=== PATIENT | male | born 1940 | race Caucasian/White ===

== ENCOUNTER 2017-02-14 09:24 | Outpatient (CLI) | payer MEDICARE, OTHER ==
[2017-02-14 18:24] LABS: CHOL/HDL RATIO 2.9 (<5.0); CHOLESTEROL 167 mg/dL; GLUCOSE,FASTING 109 mg/dL (70-100); HDL CHOLESTEROL 57 mg/dL; LDL/HDL RATIO 1.7 (<3.6); TRIGLYCERIDES 53 mg/dL; VLDL CHOLESTEROL 11 mg/dL
== END 2017-02-14 09:25 | disposition home or self-care (01) ==
LOC: LAB.F 09:24
PROVIDERS: ATTEND Internal Medicine
DX: E78.5 Hyperlipidemia, unspecified (principal); I25.9 Chronic ischemic heart disease, unspecified; R73.01 Impaired fasting glucose; C61 Malignant neoplasm of prostate; L29.9 Pruritus, unspecified; B35.6 Tinea cruris
CPT/HCPCS: 36415; 80061; 82947

== ENCOUNTER 2017-05-22 14:50 | Outpatient (CLI) | payer MEDICARE, OTHER ==
[2017-05-23 13:18] LABS: HEPATITIS C ANTIBODY NON-REACTIVE (NON-REACTIVE)
[2017-05-23 13:41] LABS: HEPATITIS B SURFACE ANTIGEN NON-REACTIVE (NON-REACTIVE)
== END 2017-05-22 14:51 | disposition home or self-care (01) ==
LOC: LAB.F 14:50
PROVIDERS: ATTEND Internal Medicine
DX: Z00.00 Encounter for general adult medical examination without abnormal findings (principal); I25.9 Chronic ischemic heart disease, unspecified; E78.5 Hyperlipidemia, unspecified; R73.01 Impaired fasting glucose; C61 Malignant neoplasm of prostate; L28.2 Other prurigo; B35.6 Tinea cruris; Z20.828 Contact with and (suspected) exposure to other viral communicable diseases
CPT/HCPCS: 36415; 86803; 87340; 87389

== ENCOUNTER 2017-09-28 08:00 | Outpatient (CLI) | payer MEDICARE, OTHER | END 2017-09-28 08:01 | LOC: LAB.F 08:00 | PROVIDERS: ATTEND Urology | DX: C61 Malignant neoplasm of prostate (principal) | CPT/HCPCS: 36415; 84153 ==

== ENCOUNTER 2018-02-28 09:00 | Outpatient (CLI) | payer MEDICARE, OTHER ==
[2018-02-28 18:28] LABS: CHOL/HDL RATIO 2.3 (<5.0); CHOLESTEROL 143 mg/dL; GLUCOSE,FASTING 109 mg/dL (70-100); HDL CHOLESTEROL 63 mg/dL; LDL CHOLESTEROL,CALCULATED 67 mg/dL; LDL/HDL RATIO 1.1 (<3.6); VLDL CHOLESTEROL 13 mg/dL
[2018-03-01 14:11] LABS: HIV AG/AB 4TH GEN NON-REACTIVE (NON-REACTIVE)
== END 2018-02-28 09:01 | disposition home or self-care (01) ==
LOC: LAB.F 09:00
PROVIDERS: ATTEND Internal Medicine
DX: Z00.00 Encounter for general adult medical examination without abnormal findings (principal); E78.5 Hyperlipidemia, unspecified; Z11.4 Encounter for screening for human immunodeficiency virus [HIV]; C61 Malignant neoplasm of prostate; J30.9 Allergic rhinitis, unspecified; M50.30 Other cervical disc degeneration, unspecified cervical region; L25.9 Unspecified contact dermatitis, unspecified cause; R73.01 Impaired fasting glucose; N52.9 Male erectile dysfunction, unspecified; M25.562 Pain in left knee; Z98.61 Coronary angioplasty status; L28.2 Other prurigo; I73.00 Raynaud's syndrome without gangrene; Z12.11 Encounter for screening for malignant neoplasm of colon; B35.6 Tinea cruris
CPT/HCPCS: 36415; 80061; 82947; 84153; G0475; 83721; 87389

== ENCOUNTER 2018-03-05 15:15 | Outpatient (CLI) | payer MEDICARE, OTHER ==
--- NOTE | 2018-03-06 01:57 | XRAY Report ---
Reason: PAIN IN RIGHT HIP JOINT Procedure Date: 03/05/2018 Accession Number: [id number] / [id number] Procedure: XR - Hip w/Pelvis 2-3V RT CPT Code: FULL RESULT: EXAM: RIGHT HIP AND PELVIS RADIOGRAPHY EXAM DATE: 03/05/2018 03:30 PM. HISTORY: PAIN IN RIGHT HIP JOINT. COMPARISONS: None. TECHNIQUE: 1 view of the pelvis and 1 view of the hip. FINDINGS: Bones: Normal. No fracture or bone lesion. Joints: Mild right hip joint space narrowing. Lower lumbar spine disk related degenerative changes also seen. Soft Tissues: Prostate gland brachytherapy seed implants noted. IMPRESSION: 1. No evidence of right hip fracture or destructive bony lesion. 2. Mild degenerative changes. RADIA
== END 2018-03-05 15:16 | disposition home or self-care (01) ==
LOC: DI 15:15
PROVIDERS: ATTEND Internal Medicine
DX: M16.11 Unilateral primary osteoarthritis, right hip (principal); M51.36 Other intervertebral disc degeneration, lumbar region

== ENCOUNTER 2019-04-23 10:26 | Outpatient (CLI) | payer MEDICARE, OTHER ==
[2019-04-23 20:01] LABS: CHOL/HDL RATIO 2.2 (<5.0); CHOLESTEROL 144 mg/dL; GLUCOSE,FASTING 101 mg/dL (70-100); HDL CHOLESTEROL 65 mg/dL; LDL CHOLESTEROL,CALCULATED 69 mg/dL; LDL/HDL RATIO 1.1 (<3.6); VLDL CHOLESTEROL 10 mg/dL
== END 2019-04-23 10:27 | disposition home or self-care (01) ==
LOC: LAB.S 10:26
PROVIDERS: ATTEND Internal Medicine
DX: Z00.00 Encounter for general adult medical examination without abnormal findings (principal); J30.9 Allergic rhinitis, unspecified; I25.9 Chronic ischemic heart disease, unspecified; H91.90 Unspecified hearing loss, unspecified ear; M50.30 Other cervical disc degeneration, unspecified cervical region; N52.9 Male erectile dysfunction, unspecified; E78.5 Hyperlipidemia, unspecified; R73.01 Impaired fasting glucose; C61 Malignant neoplasm of prostate; M25.562 Pain in left knee; M25.551 Pain in right hip; M25.511 Pain in right shoulder; Z98.61 Coronary angioplasty status; I73.00 Raynaud's syndrome without gangrene; Z12.11 Encounter for screening for malignant neoplasm of colon; Z12.5 Encounter for screening for malignant neoplasm of prostate
CPT/HCPCS: 36415; 80061; 82947; 83721; 84153

== ENCOUNTER 2020-04-04 10:09 | Outpatient (CLI) | payer MEDICARE, OTHER ==
[2020-04-04 15:25] LABS: CHOL/HDL RATIO 2.6 (<5.0); CHOLESTEROL 167 mg/dL; GLUCOSE 114 mg/dL (70-100); HDL CHOLESTEROL 65 mg/dL; LDL CHOLESTEROL,CALCULATED 82 mg/dL; LDL/HDL RATIO 1.3 (<3.6); VLDL CHOLESTEROL 20 mg/dL
== END 2020-04-04 10:10 | disposition home or self-care (01) ==
LOC: LAB.S 10:09
PROVIDERS: ATTEND Internal Medicine
DX: Z00.00 Encounter for general adult medical examination without abnormal findings (principal); E78.5 Hyperlipidemia, unspecified; N52.9 Male erectile dysfunction, unspecified; Z98.61 Coronary angioplasty status; M50.30 Other cervical disc degeneration, unspecified cervical region; R73.01 Impaired fasting glucose; C61 Malignant neoplasm of prostate; M25.562 Pain in left knee; M25.511 Pain in right shoulder; M25.551 Pain in right hip; I73.00 Raynaud's syndrome without gangrene; Z12.11 Encounter for screening for malignant neoplasm of colon
CPT/HCPCS: 36415; 80061; 82947; 83721

== ENCOUNTER 2020-07-20 09:32 | Outpatient (CLI) | payer MEDICARE, OTHER ==
--- NOTE | 2020-07-20 11:54 | MRI Report ---
PROCEDURE: Lumbar Spine W/O INDICATIONS: LUMBAR RADICULOPATHY TECHNIQUE: Noncontrast sagittal T1 spin echo and T2 fast echo, sagittal STIR, axial T1 and T2 fast spin echo thr ough the lumbar spine. In cases with scoliosis, additional coronal T2 fast spin echo may be performe d. COMPARISON: Lumbar spine plain films dated 08/26/2014. FINDINGS: Image quality: Excellent. Alignment and Curvature: Trace degenerative retrolisthesis of L4 on L5. Bone Marrow: Marrow is of normal overall signal. No acute vertebral body compression fractures. Spinal Cord: Conus medullaris terminates at the L1 level. Visualized cord demonstrates normal signa l and size. Paraspinous Soft Tissues: No paravertebral masses. T12-L1: No canal stenosis or foraminal stenosis. L1-L2: Mild disc bulge. Mild facet hypertrophy. No canal stenosis or foraminal stenosis. L2-L3: Disc bulge. Facet and ligament hypertrophy. Moderate canal stenosis. Mild bilateral foramin al stenosis. L3-L4: Disc bulge, short pedicles, facet and ligamentous hypertrophy with severe canal stenosis. Mi ld to moderate right foraminal narrowing. Moderate to severe left foraminal narrowing with flattening deformity on the exiting left L3 nerve root. L4-L5: Short pedicles, trace retrolisthesis of L4 on L5, disc bulge, facet and ligament hypertrophy . Marked canal stenosis. Moderate bilateral foraminal narrowing with flattening deformity on the exit ing bilateral L4 nerve roots. L5-S1: Disc bulge. Short pedicles. Facet and ligament hypertrophy. Moderate to severe canal stenosi s. Severe right foraminal narrowing with impingement on the exiting right L5 nerve root. Moderate lef t foraminal narrowing with flattening deformity on the exiting left L5 nerve root. IMPRESSION: 1. Extensive multilevel degenerative change. 2. Canal stenosis is moderate at L2-L3, severe at L3-L4, marked at L4-L5, and moderate to severe at L 5-S1. 3. Multilevel foraminal narrowing as described above. Reviewed by: Fernando Mendez MD on 07/20/2020 10:53 AM [place] Approved by: Fernando Mendez MD on 07/20/2020 10:53 AM [facility] Station ID: [id number]
--- NOTE | 2020-07-20 11:57 | XRAY Report ---
PROCEDURE: Knee 3 View RT INDICATIONS: LUMBAR RADICULOPATHY TECHNIQUE: 3 views of the right knee(s) were acquired. COMPARISON: None. FINDINGS: No fracture. Scattered subchondral sclerosis and spurring. Mild narrowing of the medial joint space. Large joint effusion. Scattered vascular calcifications IMPRESSION: Mild degenerative joint disease Large joint effusion If the patient's pain or other symptoms persist, consider further evaluation with MRI. Reviewed by: Perry Hilton MD on 07/20/2020 11:55 AM PST Approved by: Perry Hilton MD on 07/20/2020 11:55 AM PST Station ID: [id number]
== END 2020-07-20 09:33 | disposition home or self-care (01) ==
LOC: DI 09:32
PROVIDERS: ATTEND Internal Medicine
DX: M47.816 Spondylosis without myelopathy or radiculopathy, lumbar region (principal); M48.061 Spinal stenosis, lumbar region without neurogenic claudication; M51.86 Other intervertebral disc disorders, lumbar region; M47.817 Spondylosis without myelopathy or radiculopathy, lumbosacral region; M51.87 Other intervertebral disc disorders, lumbosacral region; M48.07 Spinal stenosis, lumbosacral region; M16.11 Unilateral primary osteoarthritis, right hip; M25.461 Effusion, right knee

== ENCOUNTER 2020-08-18 08:12 | Outpatient (CLI) | payer MEDICARE, OTHER | END 2020-08-18 08:13 | disposition home or self-care (01) | LOC: LAB.S 08:12 | PROVIDERS: ATTEND Electrodiagnostic Medicine | DX: G62.9 Polyneuropathy, unspecified (principal) ==

== ENCOUNTER 2020-08-18 09:55 | Outpatient (CLI) | payer MEDICARE, OTHER ==
[2020-08-18 10:38] LABS: GTT GLUCOSE,FASTING 110 mg/dL (70-100)
[2020-08-18 10:58] LABS: THYROID STIMULATING HORMONE 1.01 uIU/mL (0.34-5.60)
[2020-08-18 13:45] LABS: ESTIMATED AVERAGE GLUCOSE 128 mg/dL (70-100); HEMOGLOBIN A1c% 6.1 % (4.27-6.07)
[2020-08-20 16:10] LABS: ALPHA 1 GLOBULIN 0.3 g/dL (0.2-0.3); ALPHA 2 GLOBULIN 0.8 g/dL (0.5-0.9); BETA 1 GLOBULIN 0.5 g/dL (0.4-0.6); BETA 2 GLOBULIN 0.4 g/dL (0.2-0.5); GAMMA GLOBULIN 0.7 g/dL (0.8-1.7)
== END 2020-08-18 09:56 | disposition home or self-care (01) ==
LOC: LAB 09:55
PROVIDERS: ATTEND Electrodiagnostic Medicine
DX: G62.9 Polyneuropathy, unspecified (principal)
CPT/HCPCS: 36415; 81599; 82570; 82607; 82951; 83036; 84155; 84156; 84165; 84166; 84443; 86334

== ENCOUNTER 2021-01-12 19:41 | Outpatient (CLI) | payer MEDICARE, OTHER | END 2021-01-12 19:42 | disposition short-term general hospital (02) | LOC: EMS 19:41 | DX: Z04.3 Encounter for examination and observation following other accident (principal); M25.551 Pain in right hip | CPT/HCPCS: A0425; A0427 ==

== ENCOUNTER 2021-02-19 15:03 | Outpatient (CLI) | payer MEDICARE, OTHER | END 2021-02-19 15:04 | disposition home or self-care (01) | LOC: LAB.S 15:03 | PROVIDERS: ATTEND Internal Medicine | DX: I82.409 Acute embolism and thrombosis of unspecified deep veins of unspecified lower extremity (principal) | CPT/HCPCS: 36416; 85610 ==

== ENCOUNTER 2021-03-05 08:48 | Outpatient (CLI) | payer MEDICARE, OTHER | END 2021-03-05 08:49 | disposition home or self-care (01) | LOC: LAB.S 08:48 | PROVIDERS: ATTEND Internal Medicine | DX: I82.409 Acute embolism and thrombosis of unspecified deep veins of unspecified lower extremity (principal) | CPT/HCPCS: 36416; 85610 ==

== ENCOUNTER 2021-04-12 15:27 | Outpatient (CLI) | payer MEDICARE, OTHER ==
[2021-04-12 20:00] LABS: BASOPHILS % (AUTO) 0.5 %; EOSINOPHILS # (AUTO) 0.2 10^3/uL (0.0-0.7); EOSINOPHILS % (AUTO) 3.5 %; HCT - HEMATOCRIT 39.2 % (42.0-52.0); HGB - HEMOGLOBIN 12.1 g/dL (14.0-18.0); LYMPHOCYTES # (AUTO) 2.1 10^3/uL (1.5-3.5); LYMPHOCYTES % (AUTO) 32.2 %; MEAN CORPUSCULAR HEMOGLOBIN 28.1 pg (27.0-31.0); MEAN CORPUSCULAR HGB CONC 30.9 g/dL (32.0-36.0); MEAN PLATELET VOLUME 9.7 fL (7.4-11.4); MONOCYTES # (AUTO) 0.6 10^3/uL (0.0-1.0); MONOCYTES % (AUTO) 8.9 %; NEUTROPHILS # (AUTO) 3.6 10^3/uL (1.5-6.6); NEUTROPHILS % (AUTO) 54.6 %; PLT - PLATELET COUNT 258 10^3/uL (130-450); RED BLOOD COUNT 4.31 10^6/uL (4.70-6.10); RED CELL DISTRIBUTION WIDTH 15.1 % (12.0-15.0); WHITE BLOOD COUNT 6.6 x10^3/uL (4.8-10.8)
[2021-04-12 20:24] LABS: ALBUMIN 3.8 g/dL (3.2-5.5); ALBUMIN/GLOBULIN RATIO 1.3 (1.0-2.2); ALKALINE PHOSPHATASE 122 IU/L (42-121); ALT ALANINE AMINOTRANSFERASE 19 IU/L (10-60); AST ASPARTATE AMINOTRANSFERASE 21 IU/L (10-42); BILIRUBIN,TOTAL 0.5 mg/dL (0.2-1.0); BUN - BLOOD UREA NITROGEN 22 mg/dL (6-20); CALCIUM 8.9 mg/dL (8.5-10.3); CARBON DIOXIDE - CO2 25 mmol/L (21-32); CHLORIDE 103 mmol/L (101-111); CHOL/HDL RATIO 2.6 (<5.0); CHOLESTEROL 153 mg/dL; CREATININE 0.7 mg/dL (0.6-1.2); GFR - MDRD 109 (>89); GLUCOSE 132 mg/dL (70-100); HDL CHOLESTEROL 60 mg/dL; LDL CHOLESTEROL,CALCULATED 57 mg/dL; POTASSIUM 4.2 mmol/L (3.5-5.0); SODIUM 137 mmol/L (135-145); TOTAL PROTEIN 6.7 g/dL (6.7-8.2); TRIGLYCERIDES 181 mg/dL; VLDL CHOLESTEROL 36 mg/dL
[2021-04-12 21:32] LABS: ESTIMATED AVERAGE GLUCOSE 120 mg/dL (70-100); HEMOGLOBIN A1c% 5.8 % (4.27-6.07)
== END 2021-04-12 15:28 | disposition home or self-care (01) ==
LOC: LAB.S 15:27
PROVIDERS: ATTEND Internal Medicine
DX: I82.409 Acute embolism and thrombosis of unspecified deep veins of unspecified lower extremity (principal); I25.10 Atherosclerotic heart disease of native coronary artery without angina pectoris; Z13.1 Encounter for screening for diabetes mellitus; Z12.5 Encounter for screening for malignant neoplasm of prostate
CPT/HCPCS: 36415; 80053; 80061; 83036; 85025; 85610; G0103; 83721; 84153

== ENCOUNTER 2021-09-15 10:50 | Outpatient (CLI) | payer MEDICARE, OTHER ==
--- NOTE | 2021-09-15 11:49 | XRAY Report ---
PROCEDURE: Foot 3 View RT INDICATIONS: RT FOOT PAIN TECHNIQUE: 3 views of the foot were acquired. COMPARISON: None. FINDINGS: Bones: No acute fractures or dislocations. No suspicious bony lesions. Possible third hammertoe def ormity. Mild degenerative changes are seen at the first metatarsophalangeal joint. No osseous erosion is seen. Soft tissues: No suspicious soft tissue calcifications. IMPRESSION: Mild first metatarsophalangeal osteoarthrosis. Possible third hammertoe deformity. No acute osseous a bnormality. If symptoms persist or there is continued clinical concern, further evaluation with MRI o r CT may be helpful. Reviewed by: Dada Arroyo MD on 09/15/2021 11:47 AM PDT Approved by: Dada Arroyo MD on 09/15/2021 11:47 AM PDT Station ID: [id number]
== END 2021-09-15 10:51 | disposition home or self-care (01) ==
LOC: DI 10:50
PROVIDERS: ATTEND Podiatrist
DX: M19.071 Primary osteoarthritis, right ankle and foot (principal)

== ENCOUNTER 2022-04-06 13:55 | Outpatient (CLI) | payer MEDICARE, OTHER | END 2022-04-06 13:56 | disposition home or self-care (01) | LOC: LAB.S 13:55 | PROVIDERS: ATTEND Internal Medicine | DX: I25.9 Chronic ischemic heart disease, unspecified (principal); E78.5 Hyperlipidemia, unspecified; R73.01 Impaired fasting glucose; C61 Malignant neoplasm of prostate ==

== ENCOUNTER 2022-04-11 14:00 | Outpatient (CLI) | payer MEDICARE, OTHER ==
[2022-04-11 19:55] LABS: BASOPHILS # (AUTO) 0.1 10^3/uL (0.0-0.1); BASOPHILS % (AUTO) 1.2 %; EOSINOPHILS # (AUTO) 0.5 10^3/uL (0.0-0.7); EOSINOPHILS % (AUTO) 6.5 %; HCT - HEMATOCRIT 41.3 % (42.0-52.0); HGB - HEMOGLOBIN 12.9 g/dL (14.0-18.0); LYMPHOCYTES # (AUTO) 2.6 10^3/uL (1.5-3.5); LYMPHOCYTES % (AUTO) 38.2 %; MEAN CORPUSCULAR HEMOGLOBIN 29.4 pg (27.0-31.0); MEAN CORPUSCULAR HGB CONC 31.2 g/dL (32.0-36.0); MEAN CORPUSCULAR VOLUME 94.1 fL (80.0-94.0); MONOCYTES # (AUTO) 0.6 10^3/uL (0.0-1.0); MONOCYTES % (AUTO) 9.3 %; NEUTROPHILS # (AUTO) 3.1 10^3/uL (1.5-6.6); NEUTROPHILS % (AUTO) 44.5 %; PLT - PLATELET COUNT 230 10^3/uL (130-450); RED BLOOD COUNT 4.39 10^6/uL (4.70-6.10); RED CELL DISTRIBUTION WIDTH 13.7 % (12.0-15.0); WHITE BLOOD COUNT 6.9 x10^3/uL (4.8-10.8)
[2022-04-11 20:18] LABS: BUN - BLOOD UREA NITROGEN 21 mg/dL (6-20); CALCIUM 9.2 mg/dL (8.5-10.3); CARBON DIOXIDE - CO2 30 mmol/L (21-32); CHLORIDE 102 mmol/L (101-111); CHOL/HDL RATIO 2.1 (<5.0); CHOLESTEROL 124 mg/dL; CREATININE 0.7 mg/dL (0.6-1.2); GFR - MDRD 109 (>89); GLUCOSE 98 mg/dL (70-100); HDL CHOLESTEROL 59 mg/dL; LDL CHOLESTEROL,CALCULATED 49 mg/dL; LDL/HDL RATIO 0.8 (<3.6); POTASSIUM 4.4 mmol/L (3.5-5.0); SODIUM 137 mmol/L (135-145); TRIGLYCERIDES 78 mg/dL; VLDL CHOLESTEROL 16 mg/dL
[2022-04-11 21:18] LABS: ESTIMATED AVERAGE GLUCOSE 128 mg/dL (70-100); HEMOGLOBIN A1c% 6.1 % (4.27-6.07)
== END 2022-04-11 14:01 | disposition home or self-care (01) ==
LOC: LAB.S 14:00
PROVIDERS: ATTEND Internal Medicine
DX: I25.9 Chronic ischemic heart disease, unspecified (principal); E78.5 Hyperlipidemia, unspecified; R73.01 Impaired fasting glucose; C61 Malignant neoplasm of prostate
CPT/HCPCS: 36415; 80048; 80061; 83036; 83721; 84153; 85025

== ENCOUNTER 2022-11-18 10:20 | Outpatient (CLI) | payer MEDICARE, OTHER ==
[2022-11-18 15:09] LABS: BASOPHILS # (AUTO) 0.1 10^3/uL (0.0-0.1); BASOPHILS % (AUTO) 0.9 %; EOSINOPHILS # (AUTO) 0.4 10^3/uL (0.0-0.7); EOSINOPHILS % (AUTO) 5.2 %; HCT - HEMATOCRIT 41.2 % (42.0-52.0); HGB - HEMOGLOBIN 13.1 g/dL (14.0-18.0); LYMPHOCYTES # (AUTO) 2.6 10^3/uL (1.5-3.5); LYMPHOCYTES % (AUTO) 38.5 %; MEAN CORPUSCULAR HEMOGLOBIN 30.1 pg (27.0-31.0); MEAN CORPUSCULAR HGB CONC 31.8 g/dL (32.0-36.0); MEAN CORPUSCULAR VOLUME 94.7 fL (80.0-94.0); MEAN PLATELET VOLUME 10.1 fL (7.4-11.4); MONOCYTES # (AUTO) 0.6 10^3/uL (0.0-1.0); MONOCYTES % (AUTO) 9.2 %; NEUTROPHILS # (AUTO) 3.1 10^3/uL (1.5-6.6); NEUTROPHILS % (AUTO) 45.9 %; PLT - PLATELET COUNT 196 10^3/uL (130-450); RED BLOOD COUNT 4.35 10^6/uL (4.70-6.10); RED CELL DISTRIBUTION WIDTH 13.9 % (12.0-15.0); WHITE BLOOD COUNT 6.8 x10^3/uL (4.8-10.8)
[2022-11-18 15:46] LABS: ALBUMIN 3.6 g/dL (3.2-5.5); ALBUMIN/GLOBULIN RATIO 1.2 (1.0-2.2); ALKALINE PHOSPHATASE 48 IU/L (42-121); ALT ALANINE AMINOTRANSFERASE 22 IU/L (10-60); AST ASPARTATE AMINOTRANSFERASE 21 IU/L (10-42); BILIRUBIN,TOTAL 0.9 mg/dL (0.2-1.0); BUN - BLOOD UREA NITROGEN 17 mg/dL (6-20); CALCIUM 8.7 mg/dL (8.5-10.3); CARBON DIOXIDE - CO2 27 mmol/L (21-32); CHLORIDE 106 mmol/L (101-111); CHOL/HDL RATIO 2.1 (<5.0); CHOLESTEROL 150 mg/dL; CREATININE 0.7 mg/dL (0.6-1.2); GFR - MDRD 109 (>89); GLUCOSE 94 mg/dL (70-100); HDL CHOLESTEROL 73 mg/dL; LDL CHOLESTEROL,CALCULATED 63 mg/dL; LDL/HDL RATIO 0.9 (<3.6); POTASSIUM 4.2 mmol/L (3.5-5.0); SODIUM 139 mmol/L (135-145); TOTAL PROTEIN 6.5 g/dL (6.7-8.2); TRIGLYCERIDES 70 mg/dL; VLDL CHOLESTEROL 14 mg/dL
== END 2022-11-18 10:21 | disposition home or self-care (01) ==
LOC: LAB.S 10:20
PROVIDERS: ATTEND Allergy & Immunology
DX: B35.1 Tinea unguium (principal)
CPT/HCPCS: 36415; 80053; 80061; 83721; 85025

== ENCOUNTER 2023-03-02 13:51 | Outpatient (CLI) | payer MEDICARE, OTHER ==
--- NOTE | 2023-03-02 14:42 | Sleep Patient Instructions ---
Sleep Center Visit Summary - Patient Visit Information Reason for Visit: Initial consult for evaluation of sleep disordered breathing and other sleep issues. - Patient Instructions Instructions Attached: Sleep Study Home Monitor Additional Instructions: You will be completing a sleep study, either an in-lab polysomnography (PSG) or home sleep study (HST). You will follow-up in the sleep care office after the sleep study is completed to hear the results and talk about therapy, if needed. You will be called by our office staff to schedule this appointment, but you may contact us with any questions. - Clinic Information Contact: [facility] [address] [place] [address] [email or web address] T: [phone]
--- NOTE | 2023-03-02 14:51 | SLEEP CARE CONSULTATION ---
Information from patient questionnaire entered by Aly Duarte. I have reviewed and concur with the information entered by Aly Duarte. This document represents the service I personally performed and the decisions made by me, Deepa Ceja ARNP. History of Present Illness Service Date and Time: 03/02/2023 1351 Reason for Visit: New patient Chief Complaint: reports: Excessive daytime sleepiness, Fatigue Date of Onset: LONG TIME Usual bedtime: 11PM Time it takes to fall asleep: 20MIN Snores at night: Yes (a little bit) Observed to quit breathing while asleep: Yes (once in a while) Number of times waking at night: 3-5 Reasons for waking at night: reports: Bathroom. denies: Choking, Gasping for air Toss, Turn, or Twitch while sleeping: No Recalls having dreams: Yes Usually gets out of bed at: 8AM Feels refreshed in the morning: No Morning headache: No Sleepy or fatigued during the day: Yes Ever fallen asleep while driving: No Takes day naps: Yes (5 days a week; 15 mins or more) Dreams during day naps: No Prior sleep studies: No Additional HPI information: I had the pleasure of seeing KAVON HOYOS today regarding the possibility of him having a sleep disorder. His current complaints are excessive daytime sleepiness and fatigue. He states he has low energy during the day. He states he wakes up randomly at night for the bathroom every 1-1.5 hours. He has a device that monitors his oxygen level and heart rate, it has showed low oxygen levels according to the patient. He states he is slow to wake up and does not usually feel refreshed. He has been told that he snores sometimes and will occasionally stop breathing at night. - Parasomnia Symptoms Ever been unable to move upon waking from sleep: No Walks in sleep: No Talks in sleep: No Ever acted out dreams in sleep: No Ever felt weak in the knees when startled or emotional: No Bothered by creepy, crawly, restless sensations in legs: No Problems with memory or concentration: No Subjective Initial [place] Sleepiness Scale score: 8 (03/01/23) Past Medical History Past Medical History: reports: Arthritis, Coronary Heart Disease (1 stent placed after heart attack 10 yrs ago), Impotence Social History The patient's occupation is a RETIRED. Patient is and lives in [place]. Have you smoked in the past 12 months: No Alcohol use: Yes Alcohol amount and frequency: VERY LITTLE WEEK Caffeine use: Yes Caffeine amount and frequency: 3 CUPS PER DAY Family History Family history of sleep disordered breathing: No Allergies and Home Medications Known drug allergies: No Drug allergies reviewed: Yes Home medication list reviewed: Yes Allergy and home medication list: Allergies No Known Drug Allergies Allergy (Verified 02/13/13 20:45) Home Medications Medication Instructions Recorded Confirmed Last Taken Type Aspirin [Aspir 81] See Rx Instructions .ROUTE .COMPLEX 02/13/13 03/02/23 02/13/13 History 81 Ascorbic Acid [Vitamin C] See Rx Instructions .ROUTE .COMPLEX 03/02/23 03/02/23 Unknown History Cholecalciferol (Vitamin D3) See Rx Instructions .ROUTE .COMPLEX 03/02/23 03/02/23 Unknown History [Vitamin D3] Gabapentin See Rx Instructions .ROUTE .COMPLEX 03/02/23 03/02/23 Unknown History Lactobacillus Combination No.4 See Rx Instructions .ROUTE .COMPLEX 03/02/23 03/02/23 Unknown History [Probiotic] Multivit-Min/Folic/Vit K/Lycop See Rx Instructions .ROUTE .COMPLEX 03/02/23 Unknown History [One Daily Men's 50 Plus D3 Tab] Rosuvastatin Calcium See Rx Instructions .ROUTE .COMPLEX 03/02/23 03/02/23 Unknown History Tamsulosin HCl [Flomax] See Rx Instructions .ROUTE .COMPLEX 03/02/23 03/02/23 Unknown History Terbinafine [Lamisil] See Rx Instructions .ROUTE .COMPLEX 03/02/23 03/02/23 Unknown History Review of Systems Cardiovascular: denies: high blood pressure Respiratory: reports: shortness of breath Gastrointestinal: denies: heartburn Urinary: reports: impotence Neurological: denies: headaches Psychiatric: denies: anxiety, depression Ear/Nose/Throat: reports: nasal congestion, sinus problems, tonsillectomy, wisdom teeth removed Endocrine: reports: sluggishness Musculoskeletal: reports: joint pain, mobility problems Immunologic: reports: rash, itching Physical Exam Vital signs obtained and entered by: ALY Jason MA Blood Pressure: 98/60 (LEFT ARM) Cuff size: regular Heart Rate: 64 O2 Saturation: 97 Height: 6 ft 1 in Weight: 225 lb 12.8 oz Body Mass Index: 29.7 BMI Classification: Overweight Neck circumference: 16.5 Mouth and throat: narrow oropharynx Soft palate: normal Hard palate: normal Uvula: normal Uvula visualization: 25% Mallampati Class III Tongue: enlarged in size with teeth [place] on lateral edges Tonsils: absent bilaterally Neck: normal w/o lymphadenopathy or thyromegaly Heart: irregular rhythm Lungs: clear bilaterally Impression and Plan 1. Suspected Obstructive Sleep Apnea-Hypopnea Syndrome, as suggested by a history of loud and irregular snoring, observed cessation of breath while asleep, frequent awakening during the night, unrefreshed sleep, and excessive daytime sleepiness. Narrow oropharynx and obesity are common predisposing factors for obstructive sleep apnea-hypopnea syndrome. I recommend proceeding to polysomnography to confirm the diagnosis and to assess severity. If the patient has significant sleep disordered breathing, a manual CPAP titration study will also be performed to find the optimal treatment pressure. I informed the patient of what the sleep studies involve and after some discussion, obtained agreement to proceed. The pathophysiology of obstructive sleep apnea-hypopnea syndrome was discussed with the patient and health risks of cardiovascular and cerebrovascular disease if not treated. 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 Patient agreed to plan. * Schedule polysomnography. * Avoid long distance driving or driving when feeling sleepy. * Avoid alcohol, sedative and muscle relaxant around bedtime. * Attempt to lose weight. * Review instructions provided by trained office staff on how to prepare for the sleep study. * Return for follow-up after sleep study completed. Counseling Topics: Weight loss health impact Plan: PSG/HST Visit Type: In Office Time Spent with Patient (minutes): 36 Provider Statement: I spent 100% of the Face to Face Visit with the patient with greater than 50% spent counseling the patient and coordination of care.
[2023-03-02 14:58] VITALS: BP 98/60; O2SAT 97
== END 2023-03-02 13:52 | disposition home or self-care (01) ==
LOC: SC 13:51
PROVIDERS: ATTEND Nurse Practitioner Family
DX: G47.10 Hypersomnia, unspecified (principal); R53.83 Other fatigue; G47.8 Other sleep disorders; R06.83 Snoring; R06.81 Apnea, not elsewhere classified; I25.10 Atherosclerotic heart disease of native coronary artery without angina pectoris; E66.3 Overweight; Z68.29 Body mass index [BMI] 29.0-29.9, adult
CPT/HCPCS: 99203; G0463; 99212

== ENCOUNTER 2023-03-15 12:36 | Outpatient (CLI) | payer MEDICARE, OTHER | END 2023-03-15 12:37 | disposition home or self-care (01) | LOC: SC 12:36 | PROVIDERS: ATTEND Nurse Practitioner Family | DX: G47.33 Obstructive sleep apnea (adult) (pediatric) (principal); R09.02 Hypoxemia; E66.3 Overweight; Z68.29 Body mass index [BMI] 29.0-29.9, adult | CPT/HCPCS: G0399 ×2; 95806 ==

== ENCOUNTER 2023-04-26 10:31 | Outpatient (CLI) | payer MEDICARE, OTHER ==
--- NOTE | 2023-04-26 09:57 | Sleep Patient Instructions ---
Sleep Center Visit Summary - Patient Visit Information Reason for Visit: Sleep study follow - telehealth visit - Patient Instructions Instructions Attached: CPAP Additional Instructions: You are being started on CPAP therapy with pressure setting at 5-15 cmH2O. You will need to call the sleep care office to set up your follow up once you have your APAP machine and we will schedule a visit to check compliance and response to therapy at that time. You may call the office with any concerns about pressure feeling too low or too much for adjustment, if needed. You should contact DME supplier for any questions or concerns about mask or equipment. Please call office to schedule a follow up appointment in the sleep care office one month after obtaining new device. - Clinic Information Contact: [facility] [address] [place] [address] [email or web address] T: [phone]
--- NOTE | 2023-04-26 10:00 | SLEEP CARE CONSULTATION ---
Information from patient questionnaire entered by Rosalba Duarte. I have reviewed and concur with the information entered by Rosalba Duarte. This document represents the service I personally performed and the decisions made by me, Deepa Ceja ARNP. History of Present Illness Service Date and Time: 04/26/2023 0940 Initial [place] Sleepiness Scale score: 8 Current [place] Sleepiness Scale score: 13 (04/26/23) Additional HPI information: KAVON HOYOS returns via telephone appointment for follow up and results of the recently performed home sleep study. The sleep study showed moderate obstructive sleep apnea with an average AHI of 22.5 and ainsley oxygen saturation of 73%. I explained the pathophysiology behind obstructive sleep apnea. We then spent quite a bit of time discussing different treatment options. For mild obstructive sleep apnea, surgery and oral appliance are alternatives to nasal CPAP therapy but in moderate or severe cases, nasal CPAP is the most effective and reliable treatment. I reviewed the impact of weight changes on sleep apnea and strongly recommended losing weight. After some discussion, the patient opted to go with the nasal CPAP therapy. Nasal autoCPAP set at 4-15 cmH20 will be ordered with rationale explained. A manual titration study will be ordered if unable to find optimal pressure with office adjustments. I explained how CPAP machine works and what to expect when using the machine. Using CPAP every night in order to get used to it was emphasized. Patient advised to put CPAP mask on before getting into bed so as not to fall asleep without CPAP. To assist acclimation to CPAP use, it could also be used for a short time during day while reading or watching TV. The patient was instructed to call the CPAP supplier to discuss any mechanical problem that may occur. If the mask given is uncomfortable or is difficult to keep on through the night even with adjustment, contact the CPAP supplier as many will replace with another mask style if notified before 30 days. If snoring or perceives is not getting enough air or too much air from the machine, notify this office. Patient was cautioned about risks of drowsy driving until sleepiness symptoms resolve. Sleep Study - Results Type of Sleep Study: Home sleep study (COMPLETED 03/15/23) Prior sleep studies: No Polysomnography/Home Sleep Study results: Physician Impression: The quality of the study is good. The length of the study is adequate (> 240 minutes). Please also see the tabulated and graphic data. 1. Obstructive Sleep Apnea-Hypopnea (ICD-10 G47.33), moderate, with an AHI of 22.5/hr and ainsley SaO2 of 73%. During the study, the patient had 151 apneas (151 obstructive, 0 central, 0 mixed) and 83 hypopneas. The longest episode lasted 79.0 seconds. The respiratory events occurred more frequently during supine sleep (supine AHI was 22.9 and non-supine, 9.45). 2. Hypoxemia (ICD-10 R09.02), moderate, with the lowest oxygen saturation of 73 % and 48.9 minutes with SaO2 under 90%. Baseline oxygen saturation was normal (Average oxygen saturation was 92%). Allergies and Home Medications Known drug allergies: No Drug allergies reviewed: Yes Home medication list reviewed: Yes (no changes) Allergy and home medication list: Allergies No Known Drug Allergies Allergy (Verified 04/25/23 09:02) Review of Systems Review of systems same as previous: Yes (NO CHANGE) Physical Exam Vital signs obtained and entered by: ROSALBA Jason MA Blood Pressure: 120/70 (PER PT) Height: 6 ft 1 in (PER PT) Weight: 225 lb (PER PT) Body Mass Index: 29.7 BMI Classification: Overweight Impression and Plan 1. Obstructive Sleep Apnea-Hypopnea Syndrome, moderate, with lowest oxygen saturation of 73%. Obviously this is the cause of the patients symptoms of unrefreshed sleep, and excessive daytime sleepiness. Positive pressure therapy could benefit cardiac disease (CHD, [place]). As mentioned above, the patient will be started on nasal autoCPAP therapy with pressure set at 5-15 cmH2O. A manual titration study will be completed if unable to find optimal treatment pressure with office adjustments. Compliance guidelines also reviewed. A copy of compliance guidelines will be given for reference at check out. Because the apnea is more severe supine, I instructed to avoid sleeping supine using pillow positioning until able to start CPAP use. 2. Hypoxemia, moderate, with a ainsley oxygen saturation of 73% and 48.9 minutes spent under 90%. The baseline oxygen saturation was normal with an average oxygen saturation of 92%. 3. Overweight, unspecified. Currently patients BMI is 29.7. Obesity increases the risk of apnea, CPAP pressure requirements and overall health risks especially cardiovascular and diabetes. Thus patient is advised to lose weight. * Nasal auto CPAP therapy, pressure at 5-15 cm H2O. * Attempt to lose weight. * Avoid alcohol consumption near bedtime. * Avoid supine sleep until using CPAP. * The patient is again cautioned about driving until sleepiness completely resolves. * Return one month after CPAP obtained. I will assess response to therapy and compliance at that time. Counseling Topics: Weight loss health impact Prescriptions: Auto CPAP Plan: Compliance followup for CPAP Visit Type: Telehealth Phone Video Type: [facility] Patient Location: Home Location of Provider: Office Patient agrees and consents to this telehealth visit type: Yes Patient agrees to have their insurance billed: Yes Time Spent with Patient (minutes): 22 Provider Statement: I spent 100% of the Telehealth Phone Call with the patient with greater than 50% spent counseling the patient and coordination of care.
[2023-04-26 10:04] VITALS: BP 120/70
== END 2023-04-26 10:32 | disposition home or self-care (01) ==
LOC: SC 10:31
PROVIDERS: ATTEND Nurse Practitioner Family
DX: G47.33 Obstructive sleep apnea (adult) (pediatric) (principal); R09.02 Hypoxemia; E66.3 Overweight; Z68.29 Body mass index [BMI] 29.0-29.9, adult
CPT/HCPCS: 99442

== ENCOUNTER 2023-06-28 14:52 | Outpatient (CLI) | payer MEDICARE, OTHER ==
--- NOTE | 2023-06-28 14:00 | SLEEP CARE CONSULTATION ---
Information from patient questionnaire entered by Aly Duarte. I have reviewed and concur with the information entered by Aly Duarte. This document represents the service I personally performed and the decisions made by , Deepa Ceja ARNP. History of Present Illness Service Date and Time: 06/28/2023 1340 Previous diagnosis: Moderate, Obstructive Sleep Apnea-Hypopnea Syndrome AHI: 22.5 (on 03/15/2023) Reason for follow up: first compliance Equipment type: CPAP (RESMED Airsense 11, s/u 05/2023) Equipment obtained from: Other ([facility]; getting supplies) Mask style: Nasal (over the nose) Mask brand: F[employer]P Eson 2 Backup mask available: No (will keep old mask when replaced) Prior sleep studies: No Type of Sleep Study: Home sleep study (COMPLETED 03/15/23) HPI additional information: KAVON HOYOS was diagnosed to have moderate, AHI 22.5, obstructive sleep apnea- hypopnea syndrome and returned today for CPAP therapy first compliance follow- up. Sleep Study - Results Type of Sleep Study: Home sleep study (COMPLETED 03/15/23) Prior sleep studies: No CPAP Compliance Data - Data Reviewed with Patient Average duration of nightly device use: 7 HRS 55 MINS Compliance rate %: 90 (05/26/23-06/24/23; /30 days used) Current pressure setting (cmH2O): 5-15 (median 7.3, avg 10, max 11.5) Average residual AHI: 3.9 Central apnea: 1.5 Obstructive apnea: 1.8 Average large leak: 0.8 L/min Subjective Missed days of use due to: reports: travel Patient concerns: denies: aerophagia, mask discomfort, air blowing in eyes, mask leak noise, condensation in mask/hose, nasal congestion, dry mouth, nose, throat, epistaxis Observed to snore while using device: No Current pressure setting perceived as: comfortable On therapy, patient: reports: sleeping better, awakening more refreshed, being more awake and alert during the day, more rested overall. denies: drowsiness while driving Initial [place] Sleepiness Scale score: 8 Current [place] Sleepiness Scale score: 12 (06/28/23) Allergies and Home Medications Known drug allergies: No Drug allergies reviewed: Yes Home medication list reviewed: Yes (no changes) Allergy and home medication list: Allergies No Known Drug Allergies Allergy (Verified 06/28/23 08:27) Review of Systems Review of systems same as previous: Yes (no changes) Physical Exam Vital signs obtained and entered by: ALY Jason MA Height: 6 ft 1 in (PER PT) Weight: 220 lb (PER PT) Body Mass Index: 29.0 BMI Classification: Overweight Impression and Plan 1. Obstructive Sleep Apnea-Hypopnea Syndrome, moderate, with good treatment compliance and good apnea control. On CPAP therapy, the patient has better sleep quality and is more rested overall. Patient has significant improvement of their sleep apnea and is satisfied with current CPAP therapy. He has no complaints or issues with using the mask. The patients pressure will be changed to autoCPAP 7-12 cmH20 to reflect pressure being used. Patient advised to contact me if pressure change is uncomfortable so that it can be adjusted. Goals for apnea control discussed. Patient's apnea severity and rationale for treatment to reduce apnea, improve sleep quality and reduce cardiovascular and cerebrovasc ular events was reviewed. I also reviewed the benefit of consistent device use of CPAP for cardiac disease (CHD, [place]). 2. Overweight, unspecified. Currently patients BMI is 29. Obesity increases the risk of apnea, CPAP pressure requirements and overall health risks especially cardiovascular and diabetes. Thus patient is advised to lose weight. * Change auto CPAP pressure to 7-12 cmH2O * Notify me if snoring with mask or feeling that the pressure is too much or too little * Attempt to lose weight * Call this office if any problems using CPAP * Return for follow up in 1-2 months, or sooner if concerns arise Adjust device pressure to (cmH2O): 7-12 Counseling Topics: Weight loss health impact Follow up with Sleep Care in: 1-2 months Visit Type: In Office Time Spent with Patient (minutes): 22 Provider Statement: I spent 100% of the Face to Face Visit with the patient with greater than 50% spent counseling the patient and coordination of care.
== END 2023-06-28 14:53 | disposition home or self-care (01) ==
LOC: SC 14:52
PROVIDERS: ATTEND Nurse Practitioner Family
DX: G47.33 Obstructive sleep apnea (adult) (pediatric) (principal)
CPT/HCPCS: 99442

== ENCOUNTER 2023-08-29 15:11 | Outpatient (CLI) | payer MEDICARE, OTHER ==
[2023-08-29 15:03] VITALS: BP 120/70
--- NOTE | 2023-08-29 15:03 | SLEEP CARE CONSULTATION ---
Information from patient questionnaire entered by Rosalba Duarte. I have reviewed and concur with the information entered by Rosalba Duarte. This document represents the service I personally performed and the decisions made by , Deepa Ceja ARNP. History of Present Illness Service Date and Time: 08/29/2023 1440 Previous diagnosis: Moderate, Obstructive Sleep Apnea-Hypopnea Syndrome AHI: 22.5 (on 03/15/2023) Reason for follow up: other (2 MONTH F/U) Equipment type: CPAP (RESMED Airsense 11, s/u 05/2023) Equipment obtained from: Other ([facility]; getting supplies) Mask style: Nasal (over the nose) Backup mask available: Yes (has cushions) Last cushion change: 2 months ago Prior sleep studies: No Type of Sleep Study: Home sleep study (COMPLETED 03/15/23) HPI additional information: KAVON HOYOS was diagnosed to have moderate, AHI 22.5, obstructive sleep apnea- hypopnea syndrome and returns via telephone visit today for CPAP therapy two month after pressure change follow-up. Sleep Study - Results Type of Sleep Study: Home sleep study (COMPLETED 03/15/23) Prior sleep studies: No CPAP Compliance Data - Data Reviewed with Patient Average duration of nightly device use: 7 HRS 45 MINS Compliance rate %: 90 (06/26/23-08/24/23; 55/60 days) Current pressure setting (cmH2O): 7-12 Average residual AHI: 2.5 Central apnea: 0.9 Obstructive apnea: 1.1 Hypopnea: 0.3 Average large leak: 1.6 L/min Subjective Missed days of use due to: reports: travel Patient concerns: reports: other (hears air sound when pulls water chamber out). denies: aerophagia, mask discomfort, air blowing in eyes, mask leak noise, condensation in mask/hose, nasal congestion, dry mouth, nose, throat, epistaxis Observed to snore while using device: No Current pressure setting perceived as: comfortable On therapy, patient: reports: sleeping better, awakening more refreshed, being more awake and alert during the day, more rested overall. denies: drowsiness while driving Initial [place] Sleepiness Scale score: 8 Current [place] Sleepiness Scale score: 8 Allergies and Home Medications Known drug allergies: No Drug allergies reviewed: Yes Home medication list reviewed: Yes (no changes) Allergy and home medication list: Allergies No Known Drug Allergies Allergy (Verified 08/25/23 15:25) Review of Systems Review of systems same as previous: No (pre-cancerous spots) Physical Exam Vital signs obtained and entered by: Deepa Donovan NP Blood Pressure: 120/70 (per pt) Height: 6 ft 1 in (PER PT) Weight: 225 lb (per pt) Body Mass Index: 29.7 BMI Classification: Overweight Impression and Plan 1. Obstructive Sleep Apnea-Hypopnea Syndrome, moderate, with good treatment compliance and good apnea control. On CPAP therapy, the patient has better sleep quality and is more rested overall. Patient has significant improvement of their sleep apnea and is satisfied with current CPAP therapy. Patient denies problems with oral dryness, nasal congestion, epistaxis, skin irritation or aerophagia. Patient's apnea severity and rationale for treatment to reduce apnea, improve sleep quality and reduce cardiovascular and cerebrovascular events was reviewed. I also reviewed the benefit of consistent device use of CPAP for cardiac disease (CHD, [place]). 2. Overweight, unspecified. Currently patients BMI is 29.7. Obesity increases the risk of apnea, CPAP pressure requirements and overall health risks especially cardiovascular and diabetes. Thus patient is advised to lose weight. * Continue auto CPAP pressure at 7-12 cmH2O * Notify me if snoring with mask or feeling that the pressure is too much or too little * Attempt to lose weight * Call this office if any problems using CPAP * Return for follow up in 3 months, or sooner if concerns arise Counseling Topics: Spare mask, Weight loss health impact Follow up with Sleep Care in: 3 months Visit Type: Telehealth Phone Video Type: Chidi [place] Location of Provider: Office Patient agrees and consents to this telehealth visit type: Yes Time Spent with Patient (minutes): 14 Provider Statement: I spent 100% of the Telehealth Phone Call with the patient with greater than 50% spent counseling the patient and coordination of care.
== END 2023-08-29 15:12 | disposition home or self-care (01) ==
LOC: SC 15:11
PROVIDERS: ATTEND Nurse Practitioner Family
DX: G47.33 Obstructive sleep apnea (adult) (pediatric) (principal)
CPT/HCPCS: 99442

== ENCOUNTER 2024-01-30 11:47 | Outpatient (CLI) | payer MEDICARE, OTHER ==
--- NOTE | 2024-01-30 10:43 | SLEEP CARE CONSULTATION ---
Information from patient questionnaire entered by Rosalba Duarte. I have reviewed and concur with the information entered by Rosalba Duarte. This document represents the service I personally performed and the decisions made by , Deepa Ceja ARNP. History of Present Illness Service Date and Time: 01/30/2024 1020 Previous diagnosis: Moderate, Obstructive Sleep Apnea-Hypopnea Syndrome AHI: 22.5 (on 03/15/2023) Reason for follow up: other (5 ALONSO F/U) Equipment type: CPAP (RESMED Airsense 11, s/u 05/2023) Equipment obtained from: Other ([facility]; getting supplies) Mask style: Nasal (over the nose) Backup mask available: Yes Last cushion change: 4-6 weeks Prior sleep studies: No Type of Sleep Study: Home sleep study (COMPLETED 03/15/23) HPI additional information: KAVON HOYOS was diagnosed to have moderate, AHI 22.5, obstructive sleep apnea- hypopnea syndrome and returned today for CPAP therapy five month follow-up. Sleep Study - Results Type of Sleep Study: Home sleep study (COMPLETED 03/15/23) Prior sleep studies: No CPAP Compliance Data - Data Reviewed with Patient Average duration of nightly device use: 7 HRS 54 MINS Compliance rate %: 91 (11/13/23-01/25/24; 68/74 days used) Current pressure setting (cmH2O): 7-12 Average residual AHI: 1.2 Central apnea: 0.2 Obstructive apnea: 0.7 Hypopnea: 0.1 Average large leak: 2 L/min Subjective Patient concerns: denies: aerophagia, mask discomfort, air blowing in eyes, mask leak noise, condensation in mask/hose, nasal congestion, dry mouth, nose, throat, epistaxis Observed to snore while using device: No Current pressure setting perceived as: comfortable On therapy, patient: reports: sleeping better, awakening more refreshed, being more awake and alert during the day, more rested overall. denies: drowsiness while driving Initial [place] Sleepiness Scale score: 8 Current [place] Sleepiness Scale score: 14 Allergies and Home Medications Known drug allergies: No Drug allergies reviewed: Yes Home medication list reviewed: Yes (no changes) Allergy and home medication list: Allergies No Known Drug Allergies Allergy (Verified 01/30/24 10:20) Review of Systems Review of systems same as previous: Yes (CATARACT SUGERY) Physical Exam Vital signs obtained and entered by: ROSALBA Jason MA Cuff size: regular Height: 6 ft 1 in (PER PT) Weight: 215 lb (PER PT) Body Mass Index: 28.3 BMI Classification: Overweight Impression and Plan 1. Obstructive Sleep Apnea-Hypopnea Syndrome, moderate, with good treatment compliance and good apnea control. On CPAP therapy, the patient has better sleep quality and is more rested overall. Patient has significant improvement of their sleep apnea and is satisfied with current CPAP therapy. Patient denies problems with oral dryness, nasal congestion, epistaxis, skin irritation or aerophagia. Patient's apnea severity and rationale for treatment to reduce apnea, improve sleep quality and reduce cardiovascular and cerebrovascular events was reviewed. I also reviewed the benefit of consistent device use of CPAP for cardiac disease (CHD, [place]). 2. Overweight, unspecified. Currently patients BMI is 28.3. Obesity increases the risk of apnea, CPAP pressure requirements and overall health risks especially cardiovascular and diabetes. Thus patient is advised to lose weight. * Continue auto CPAP pressure at 7-12 cmH2O * Notify me if snoring with mask or feeling that the pressure is too much or too little * Attempt to lose weight * Call this office if any problems using CPAP * Return for follow up in 12 months, or sooner if concerns arise Counseling Topics: Spare mask, Weight loss health impact Follow up with Sleep Care in: 1 year Visit Type: Telehealth Phone Video Type: Chidi Patient Location: Home Location of Provider: Office Patient agrees and consents to this telehealth visit type: Yes Patient agrees to have their insurance billed: Yes Time Spent with Patient (minutes): 14 Provider Statement: I spent 100% of the Telehealth Phone Call with the patient with greater than 50% spent counseling the patient and coordination of care.
== END 2024-01-30 11:48 | disposition home or self-care (01) ==
LOC: SC 11:47
PROVIDERS: ATTEND Nurse Practitioner Family
DX: G47.33 Obstructive sleep apnea (adult) (pediatric) (principal); E66.3 Overweight; Z68.28 Body mass index [BMI] 28.0-28.9, adult
CPT/HCPCS: 99442